=== PATIENT | male | born 1960 | race Caucasian/White ===

== ENCOUNTER 2020-08-12 09:26 | Day surgery (SDC) | payer BC ==
[2020-08-12] VITALS (11 sets, daily range): BP systolic 92–108; BP diastolic 47–66
[~2020-08-12] VITALS: Ht 182.9 cm; Wt 142.7 kg
[2020-08-12] MEDS ORDERED: normal saline 1,000 ML IV SCH (09:50)
[2020-08-12] MEDS ORDERED: diphenhydrAMINE 25mg capsule PO PRN (09:50)
[2020-08-12] MEDS ORDERED: SPIR25TA5 PO (09:57)
[2020-08-12] MEDS ORDERED: CLOP75TA34 PO (09:57)
[2020-08-12] MEDS ORDERED: EMPA25TA PO (09:57)
[2020-08-12] MEDS ORDERED: METF-438 PO (09:57)
[2020-08-12] MEDS ORDERED: METO-384 PO (09:57)
[2020-08-12] MEDS ORDERED: POTA20TA19 PO (09:57)
[2020-08-12] MEDS ORDERED: ATOR-2 PO (09:57)
[2020-08-12] MEDS ORDERED: FURO40TA4 PO (09:57)
[2020-08-12] MEDS ORDERED: ISOS30TA84 PO (09:57)
[2020-08-12] MEDS ORDERED: NITR0.4T48 (09:57)
[2020-08-12] MEDS ORDERED: INSU100I8 SQ (10:01)
[2020-08-12] MEDS ORDERED: AMLO10TA PO (10:01)
[2020-08-12] MEDS ORDERED: BENA40TA73 PO (10:01)
[2020-08-12] MEDS ORDERED: LANTUS SQ (10:01)
[2020-08-12] MEDS ORDERED: ASPI-10 PO (10:01)
[2020-08-12] MEDS ORDERED: HYDR25TA5 PO (10:01)
[2020-08-12 10:14] LABS: BASOPHILS % (AUTO) 0.5 % (0-1); EOSINOPHILS # (AUTO) 0.2 X10'3 (0-0.9); EOSINOPHILS % (AUTO) 3.8 % (0-6); HEMATOCRIT 44.9 % (42.0-52.0); HEMOGLOBIN 15.3 g/dl (14.0-17.9); LYMPHOCYTES # (AUTO) 1.4 X10'3 (1.1-4.8); LYMPHOCYTES % (AUTO) 21.3 % (21-51); MEAN CORPUSCULAR HEMOGLOBIN 31.8 PG (27.0-31.0); MEAN CORPUSCULAR HGB CONC 34.1 g/dL (33.0-36.5); MEAN CORPUSCULAR VOLUME 93.1 FL (78-98); MEAN PLATELET VOLUME 7.1 FL (7.4-10.4); MONOCYTES # (AUTO) 0.6 X10'3 (0-0.9); MONOCYTES % (AUTO) 9.3 % (2-12); NEUTROPHILS # (AUTO) 4.3 X10'3 (1.8-7.7); NEUTROPHILS % (AUTO) 65.1 % (42-75); PLATELET COUNT 235 X10'3 (140-440); RED BLOOD COUNT 4.83 X10'6 (4.70-6.10); RED CELL DISTRIBUTION WIDTH 14.4 % (11.5-14.5); WHITE BLOOD COUNT 6.6 X10'3 (4.5-11.0)
[2020-08-12 10:20] LABS: ALBUMIN 3.8 G/DL (3.4-5.0); ANION GAP 9 (8-16); BLOOD UREA NITROGEN 29 MG/DL (7-18); BUN/CREATININE RATIO 23.4 (5.4-32.0); CALCIUM 9.6 MG/DL (8.5-10.1); CHLORIDE 103 MMOL/L (99-107); CREATININE 1.24 MG/DL (0.60-1.10); GLUCOSE 141 MG/DL (70-104); MAGNESIUM 2.3 MG/DL (1.5-2.4); POTASSIUM 3.6 MMOL/L (3.5-5.1); SODIUM 142 MMOL/L (135-145); TOTAL CARBON DIOXIDE 30.5 MMOL/L (24-32); eGFR 60 ML/MIN
[2020-08-12] MEDS ORDERED: midazolam 1 mg/ML 2ml injection ONE ×2 (10:44→11:20)
[2020-08-12] MEDS ORDERED: LIDOcaine 1% (10mg/ml)w/preservative injection 20ml MDV ONE (10:44)
[2020-08-12] MEDS ORDERED: fentaNYL/PF 50MCG/1 ML 2ML syringe ONE (10:44)
[2020-08-12] MEDS ORDERED: iohexol 350 MG/ML 50ML vial IV ONE (10:45)
[2020-08-12] MEDS ORDERED: heparin 1,000unit/ml 10ml vial 10 ML ONE (10:45)
[2020-08-12] MEDS ORDERED: iohexol 350MG/ML 100ml bottle IV ONE ×3 (10:45→12:01)
[2020-08-12] MEDS ORDERED: verapamil 2.5 mg/ml inj IV ONE (11:04)
[2020-08-12] MEDS ORDERED: nitroGLYCERIN-Tridil 50MG/D5W 250 ML IV ONE (11:04)
[2020-08-12] MEDS ORDERED: clopidogrel 300mg tablet ONE (12:28)
[2020-08-12] MEDS ORDERED: proCHLORperazine 10 MG/2 ml inj IV PRN (12:55)
[2020-08-12] MEDS ORDERED: HYDROcodone/acetaminophen 5mg/325mg tablet PO PRN (12:55)
[2020-08-12] MEDS ORDERED: ondansetron/PF 4mg/2ml inj IV PRN (12:55)
[2020-08-12] MEDS ORDERED: HYDROcodone/acetaminophen 10/325mg tab PO PRN (12:55)
== END 2020-08-12 16:00 | disposition home or self-care (01) ==
LOC: SSTAY O 09:26
PROVIDERS: ATTEND Internal Medicine Cardiovascular Disease
DX: R94.39 Abnormal result of other cardiovascular function study (principal); I25.10 Atherosclerotic heart disease of native coronary artery without angina pectoris; I25.5 Ischemic cardiomyopathy; E11.9 Type 2 diabetes mellitus without complications; E78.5 Hyperlipidemia, unspecified; G47.30 Sleep apnea, unspecified; I10 Essential (primary) hypertension; E66.9 Obesity, unspecified; Z68.41 Body mass index [BMI] 40.0-44.9, adult; Z79.899 Other long term (current) drug therapy; Z79.4 Long term (current) use of insulin; Z79.82 Long term (current) use of aspirin
CPT/HCPCS: 36415; 80048; 82948; 83735; 85025; 85610; 93005; 93458; 99152; 99153; C1725; C1751; C1769; C1874; C1894; C9600; C9601; J1644; J2001; J2250; J3010; J7030; Q0163; Q9967; A4620; A6258; J3490

== ENCOUNTER 2025-01-04 15:04 | Emergency (ER) | payer BC, OTHER ==
[~2025-01-04] VITALS: Ht 177.8 cm; Wt 113.4 kg
[~2025-01-04 15:04] MED LIST: ATOR-2 PO; BUME1TAB45 PO; CLOP75TA34 PO; EMPA25TA PO; ISOS30TA84 PO; LANTUS SQ; MAGN400C PO; METF-438 PO; METO-395 PO; NITR0.4T51 SL; POTA-207 PO; RANO500T6 PO; SACU1TAB4 PO; SPIR25TA5 PO
[2025-01-04 16:04] LABS: MEAN PLATELET VOLUME 7.0 FL (7.4-10.4); RED CELL DISTRIBUTION WIDTH 14.2 % (11.5-14.5)
--- NOTE | 2025-01-04 16:19 | RADIOLOGY REPORT ---
EXAM: CT CT HEAD HISTORY: Fall On Thinners COMPARISON: None TECHNIQUE: Noncontrast axial CT images of the head were performed. Sagittal and coronal reformatted images were obtained. This CT exam was performed using 1 or more of the following dose reduction techniques: Automated exposure control, adjustment of the mA and/or kv according to patient size, or the use of iterative reconstruction techniques. Radiation Dose: CTDI volume is 55.77 mGy. Dose-length product is 946.59 mGy*cm FINDINGS: No intracranial hemorrhage, mass, midline shift, hydrocephalus, or evidence of acute large vessel infarct. There is a small cavum septum pellucidum. There are atherosclerotic calcifications of the cavernous ICAs and terminal vertebral arteries. The partially-visualized paranasal sinuses are clear. The bilateral mastoid air cells and middle ear spaces are clear. No cranial fracture or scalp edema. IMPRESSION: No acute intracranial process.
[2025-01-04 16:25] LABS: CREATININE 1.57 MG/DL (0.60-1.10); PRO BRAIN NATRIURETIC PEPTIDE 621 PG/ML (0-125); TOTAL CARBON DIOXIDE 30.9 MMOL/L (24-32); eCRCL 49 ML/MIN; eGFR 45 ML/MIN
--- NOTE | 2025-01-04 16:42 | RADIOLOGY REPORT ---
EXAM: CT CT CERVICAL SPINE HISTORY: Fall On Thinners with pain. COMPARISON: None CTDIvol 23.24 mGy, DLP 508.24 mGy*cm. TECHNIQUE: Multiple axial CT images of the spine were obtained using bone algorithm. Axial and coronal reformatting was done. Bone and soft tissue windows were reviewed. FINDINGS: No evidence of definite acute fracture, spinal dislocation, or significant appearing acute subluxation is seen. Severe degenerative disc disease at C6-C7 with disc height loss, endplate sclerosis, and endplate osteophytes. IMPRESSION: No acute cervical spine abnormality.
--- NOTE | 2025-01-04 16:51 | RADIOLOGY REPORT ---
EXAM: DI SHOULDER, COMPLETE (MIN 2 VWS) HISTORY: Fall RIGHT SHOULDER COMPARISON: None TECHNIQUE: 3 views of the right shoulder were performed. FINDINGS: No acute fracture or dislocation are identified about the right shoulder. There is mild acromioclavicular hypertrophy without significant loss of subacromial space. IMPRESSION: 1. No acute fracture of the right shoulder. 2. Mild acromioclavicular hypertrophy.
--- NOTE | 2025-01-04 16:51 | RADIOLOGY REPORT ---
EXAM: DI ELBOW, COMPLETE (3VW MIN) HISTORY: Fall RIGHT ELBOW COMPARISON: None TECHNIQUE: Three views of the right elbow were performed. FINDINGS: No acute fracture or effusion are identified about the right elbow. No significant degenerative changes. There is a small triceps insertion enthesophyte on the olecranon process. There is a small calcification adjacent to the medial humeral epicondyle. IMPRESSION: 1. No acute fracture of the right elbow. 2. Chronic calcific medial epicondylosis. 3. Triceps insertion enthesopathy.
--- NOTE | 2025-01-04 16:52 | RADIOLOGY REPORT ---
EXAM: DI CHEST,SINGLE VIEW HISTORY: Syncope COMPARISON: CHEST,SINGLE VIEW on DOS: 10/14/22, CHEST,SINGLE VIEW on DOS: 09/21/22 TECHNIQUE: PA upright view of the chest was performed. FINDINGS: No pneumothorax, consolidative infiltrates, or pulmonary edema. The heart is not enlarged. There is a left chest AICD. IMPRESSION: No acute intrathoracic process.
--- NOTE | 2025-01-04 16:56 | RADIOLOGY REPORT ---
EXAM: DI KNEE, COMP 4 VW MIN HISTORY: Fall RIGHT KNEE COMPARISON: None TECHNIQUE: 3 views of the right knee were performed. FINDINGS: No acute fracture is identified about the right knee. There are tricompartmental marginal osteophytes. There is moderate to severe joint space narrowing of the medial compartment. Large joint effusion accumulates in the suprapatellar pouch. There are vascular calcifications posteriorly IMPRESSION: 1. No fracture of the right knee. 2. Tricompartmental degenerative changes of the right knee, greatest in the medial compartment. 3. Large right knee effusion may be due to internal derangement or degenerative changes. Consider follow-up noncontrast MRI for evaluation of the ligaments and menisci.
[2025-01-04 18:51] VITALS: PULSE 69; RESP 16; O2SAT 97
--- NOTE | 2025-01-04 20:00 | Physician Documentation ---
History of Present Illness ~ Chief Complaint: Syncope Stated Complaint: FALL W/C Time Seen by MD: 19:23 Primary Medical Doctor: SALVADOR LOUIE 64-year-old male presents to the ED after having a syncopal event with a head strike today. He is on blood thinners secondary to atrial fibrillation. States he has never had a syncopal event like this. He was at work when it occurred. Denies any current symptoms or pain. Patient adds that over the last year he has lost approximately 50 lb with purpose through exercise. I asked him if he has been keeping track of his blood pressure and he states he has been right running right around 100 systolic. States that his syncopal event occurred approximately 3 hours after taking his morning blood pressure medications. He also has a history of heart failure but has not had his ejection fracture tested since he was diagnosed. Previously around 35%. He has not had any residual symptoms denies any current dizziness. Denies any chest pain or shortness of breath Day of Onset: Jan 04, 2025 Medication Reconciliation Allergies: Coded Allergies: No Known Allergies (Unverified , 01/04/25) Scheduled Atorvastatin Calcium (Atorvastatin Calcium), 1 TAB PO DAILY, (Reported) Bumetanide (Bumetanide), 1 TABLET PO BID Clopidogrel Bisulfate (Clopidogrel), 1 TAB PO DAILY, (Reported) Empagliflozin (Jardiance), 1 TAB PO DAILY, (Reported) Insulin Glargine,Hum.rec.anlog* (Lantus*), 64 UNITS SQ HS, (Reported) Isosorbide Mononitrate (Isosorbide Mononitrate Er), 90 MG PO BID, (Reported) Magnesium Oxide (Magnesium), 1 CAP PO DAILY, (Reported) Metformin HCl (Metformin HCl), 1 TAB PO BID, (Reported) Metoprolol Succinate (Metoprolol Succinate), 150 MG PO BID Potassium Chloride* (K-Dur*), 1 TAB PO TID, (Reported) Ranolazine (Ranolazine ER), 1 TAB PO BID, (Reported) Sacubitril/Valsartan (Entresto 97 mg-103 mg Tablet), 1 TAB PO BID, (Reported) Spironolactone (Spironolactone), 1 TAB PO DAILY, (Reported) Scheduled PRN Nitroglycerin SL* (Nitrostat SL*), 1 TAB SL Q5MIN PRN for Chest pain Q5min PRNx3-call MD, (Reported) Past Medical History Past Medical History: Atrial Fibrillation, Coronary Artery Disease, Congestive Heart Failure, High Cholesterol, Hypertension, Myocardial Infarction, Sleep Apnea, Diabetes Past Surgical History: coronary bypass surgery, pacemaker Drug Use: none Lives with: Spouse Lives In: Home Review of Systems All Other Systems at this time: Reviewed and Negative ROS As stated above in the HPI, otherwise all systems are reviewed and negative. Physical Exam Vital Signs: Temperature: 97.0, Source: Temporal, Heart Rate: 69, Respiratory Rate: 16, BP: 103/67, Pulse Oximetry: 97, Weight: 113.400 Oxygen Flow Rate: 0 Physical Exam General: Alert, no apparent distress. Respiratory: Lungs clear, no respiratory distress. Chest: No accessory muscle use. Cardiovascular: Regular rate and rhythm, no murmurs. Gastrointestinal: Soft, nontender, nondistended. Bowels sounds present. Extremities: Normal range of motion, no deformity. Neurologic: Oriented x4. Psychiatric: Normal mood and affect. Skin: Normal color, warm and dry. No edema, no ecchymosis. 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 * Orthostatic Vitals* Q12H (01/04/25 20:00) Vital Signs 01/04/25 01/04/25 01/04/25 01/04/25 15:32 18:51 20:02 20:11 Temp 97.0 97.0 Pulse 82 69 Resp 16 16 B/P (MAP) 99/53 103/67 (79) Pulse Ox 97 97 O2 Flow Rate 0 0 Laboratory Tests Test 01/04/25 15:55 01/04/25 17:40 01/04/25 18:46 White Blood Count 7.4 Red Blood Count 5.62 Hemoglobin 17.2 Hematocrit 51.0 Mean Corpuscular Volume 90.7 Mean Corpuscular Hemoglobin 30.6 Mean Corpuscular Hemoglobin Concent 33.7 Red Cell Distribution Width 14.2 Platelet Count 189 Mean Platelet Volume 7.0 L Neutrophils (%) (Auto) 73.6 Lymphocytes (%) (Auto) 17.7 L Monocytes (%) (Auto) 7.1 Eosinophils (%) (Auto) 1.4 Basophils (%) (Auto) 0.2 Neutrophils # (Auto) 5.4 Lymphocytes # (Auto) 1.3 Monocytes # (Auto) 0.5 Eosinophils # (Auto) 0.1 Basophils # (Auto) 0.0 CBC Comment Sodium Level 138 Potassium Level 4.1 Chloride Level 98 L Carbon Dioxide Level 30.9 Anion Gap 9 Blood Urea Nitrogen 50 H Creatinine 1.57 H Estimated GFR/1.73 m2 45 BUN/Creatinine Ratio 31.8 H Glucose Level 124 H Calcium Level 9.2 Troponin I High Sensitivity 13 14 16 Pro-B-Type Natriuretic Peptide 621 H Albumin 4.6 Chemistry Comments Troponin I High Sens Percent Delta 7 14 Troponin I Hi Sens Absolute Change 1 2 Medical Decision Making Findings He had a good deal of time with the patient discussing his results which are mostly unremarkable including his laboratory values EKG and chest x-ray per my interpretation. CT also indicated there was no intracranial abnormalities After he reported his average systolic blood pressure, I became more concerned that based on his weight loss and his syncopal event today that he may be over prescribed blood pressure medicine at this time. I told him that it is important that he continues to monitor his blood pressure and that I feel 100 systolic maybe a bit low for him and that his blood pressure medication was likely at its highest efficacy during the period of his syncopal event this morning. Have requested orthostatics from nursing staff. Long as he is no longer symptomatic I feel it is safe to discharge him and have him go back to work. Differential Dx:Considerations: Include: dehydration, Delirium Tr., DKA, encephalopathy, hypercalcemia, HHNC, hypoglycemia, hypernatremia, hyponatremia, hypoxia, postictal, closed head injury, C-spine injury, CVA, mass lesion, subarachnoid hemorrhage, drug overdose, encephalopathy, ETOH intoxication, medication toxicity, infection - meningitis, infection - sepsis, infection - UTI, heart failure, renal failure, respiratory failure, hyperthermia, hypothermia, other Departure Disposition: 01 HOME / SELF CARE / HOMELESS Impression: Primary Impression: Syncope Discharge Instructions: Syncope, Adult Additional Instructions: He will need to monitor your blood pressure and follow up with the your primary care and Cardiology Cleared to go back to work as I feel comfortable we have found the cause of your syncopal event today. I do not want your blood pressure going below 100 Referrals: NO PRIMARY CARE PROVIDER (PCP) Signature Scribe Signature: f Attestation: Scribed for Pietro Mejía [employer] Supervisor by Pietro Kumari NP . 01/04/25 20:03 PIETRO MEJÍA NP Jan 04, 2025 20:00
[2025-01-04 20:11] VITALS: TEMP 97
[2025-01-04 20:24] VITALS: BP 108/78
--- NOTE | 2025-01-05 06:44 | ELECTROCARDIOGRAPH REPORT ---
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
== END 2025-01-04 20:27 | disposition home or self-care (01) ==
LOC: ER 15:04
DX: R55 Syncope and collapse (principal); I11.0 Hypertensive heart disease with heart failure; I50.9 Heart failure, unspecified; E78.00 Pure hypercholesterolemia, unspecified; E11.9 Type 2 diabetes mellitus without complications; G47.30 Sleep apnea, unspecified; I25.2 Old myocardial infarction; I25.10 Atherosclerotic heart disease of native coronary artery without angina pectoris; I48.91 Unspecified atrial fibrillation; Z95.0 Presence of cardiac pacemaker; Z79.01 Long term (current) use of anticoagulants; Z95.1 Presence of aortocoronary bypass graft; Z79.899 Other long term (current) drug therapy; Z79.4 Long term (current) use of insulin
CPT/HCPCS: 36415; 70450; 71045; 72125; 73030; 73080; 73564; 80048; 83880; 84484; 85025; 93005; 99285